=== PATIENT | male | born 1985 ===

== ENCOUNTER 2018-01-21 21:14 | Emergency (ER) | payer SELFPAY ==
[2018-01-21 21:27] VITALS: RESP 18; O2SAT 96
--- NOTE | 2018-01-21 23:10 | C.PDOC ---
History Of Present Illness 32 y/o male brought in by ambulance for public intoxication. No evidence of acute injuries. Patient offers no physical complaints. Time Seen by Provider: 01/21/18 21:52 Chief Complaint (Nursing): Substance Abuse History Per: Patient History/Exam Limitations: intoxication Onset/Duration Of Symptoms: Days Current Symptoms Are (Timing): Still Present Past Medical History Reviewed: Historical Data, Nursing Documentation, Vital Signs Vital Signs: Last Vital Signs Temp 97.7 F 01/21/18 21:19 Pulse 111 H 01/21/18 21:19 Resp 18 01/21/18 21:19 BP 128/86 01/21/18 21:19 Pulse Ox 96 01/21/18 23:12 - Medical History PMH: No Chronic Diseases Surgical History: No Surg Hx Family History: States: No Known Family Hx - Social History Hx Tobacco Use: No Hx Alcohol Use: Yes Hx Substance Use: No - Immunization History Hx Tetanus Toxoid Vaccination: No Hx Influenza Vaccination: No Hx Pneumococcal Vaccination: No Review Of Systems Review Of Systems: ROS cannot be obtained secondary to pt's inabilty to answer questions. Physical Exam - Physical Exam Appears: No Acute Distress, Other (AOB) Skin: Warm, Dry Head: Atraumatic, Normacephalic Eye(s): bilateral: Normal Inspection, EOMI Nose: Normal Oral Mucosa: Moist Chest: Symmetrical Cardiovascular: Rhythm Regular, No Murmur Respiratory: Normal Breath Sounds, No Rales, No Rhonchi, No Wheezing Gastrointestinal/Abdominal: Soft, No Tenderness, No Distention Extremity: Bilateral: Atraumatic, Normal Color And Temperature (with no ecchymosis, swelling, or other evidence of trauma) Pulses: Left Dorsalis Pedis: Normal, Right Dorsalis Pedis: Normal Neurological/Psych: Other (Drowsy but arousable) ED Course And Treatment O2 Sat by Pulse Oximetry: 96 (RA) Pulse Ox Interpretation: Normal Medical Decision Making Medical Decision Making: Prior records reviewed: Patient has no prior visits Impression: ETOH intoxication 2320: admits to alcohol abuse, STABLE GAIT, wants d/c immediately. Disposition Doctor Will See Patient In The: Office Counseled Patient/Family Regarding: Studies Performed, Diagnosis - Disposition Disposition: HOME/ ROUTINE Disposition Time: 23:21 Condition: GOOD Forms: [facility] (Russian) - Clinical Impression Clinical Impression: Alcohol abuse - Scribe Statement The provider has reviewed the documentation as recorded by the Scribe (Liliana Cassidy) Provider Attestation: All medical record entries made by the Scribe were at my direction and personally dictated by me. I have reviewed the chart and agree that the record accurately reflects my personal performance of the history, physical exam, medical decision making, and the department course for this patient. I have also personally directed, reviewed, and agree with the discharge instructions and disposition.
[2018-01-21 23:44] VITALS: BP 121/75; PULSE 96; TEMP 98.1
== END 2018-01-21 23:45 | disposition home or self-care (01) ==
LOC: C.ER 21:14
DX: F10.10 Alcohol abuse, uncomplicated (principal)